=== PATIENT | female | born 1950 | race Caucasian/White ===

== ENCOUNTER 2017-04-08 09:27 | Outpatient (CLI) | payer BC ==
--- NOTE | 2017-04-16 08:39 | DIAGNOSTIC IMAGING REPORT ---
PROCEDURE: MG BILATERAL SCREENING W/CAD INDICATION: SCREENING TECHNIQUE: Bilateral CC and MLO digital views. COMPARISON: Mammograms 04/06/2016, [birth year]27/1958 03/26/2014 . FINDINGS: Computer-aided detection applied. Mildly dense with a few dystrophic calcifications . No change. IMPRESSION: 1. Negative mammogram RESULT CODE: 1- Negative. A. A negative report should not delay biopsy if a dominant or clinically suspicious mass is present. 10-15% of cancers are not identified by x-ray. B. A negative report may reinforce clinical impression. C. Adenosis and dense breasts may obscure an underlying neoplasm. D. False positive reports average 6-10%. E.. A yearly screening mammogram is recommended. A reminder letter will be scheduled.
== END 2017-04-08 23:00 | disposition home or self-care (01) ==
LOC: MAM SRH 09:27
DX: Z12.31 Encounter for screening mammogram for malignant neoplasm of breast (principal)

== ENCOUNTER 2017-04-14 10:03 | Outpatient (CLI) | payer BC ==
--- NOTE | 2017-04-14 10:46 | DIAGNOSTIC IMAGING REPORT ---
PROCEDURE: DEXA BONE DENSITY STUDY CLINICAL INDICATION: OSTEOPOROSIS COMPARISON: DEXA 03/09/2013 FINDINGS: LUMBAR SPINE: Bone mineral density 0.795 g/cm2, T score -2.3 osteopenia which represents a 0.9% decrease from the previous study LEFT HIP: Bone mineral density 0.768 g/cm2, T score -1.4 osteopenia which represents a 7.8% improvement since the previous study. LEFT FEMORAL NECK: Bone mineral density 0.581 g/cm2, T score -2.4 osteopenia which represents a 0.1% decrease from the previous study FRACTURE RISK CALCULATION ( when applicable): 10-year fracture risk of a major osteoporotic fracture 12% and of a hip fracture 2.3% (T score greater or equal to -1.0 to: NORMAL) (T score from -1.1 to -2.4: OSTEOPENIA) (T score ess than or equal to -2.5: OSTEOPOROSIS) IMPRESSION: 1. Osteopenia spine hip and femoral neck with a 10-year major fracture risk of 12% and a hip fracture risk of 2.3%
== END 2017-04-14 23:00 ==
LOC: XR SRH 10:03
DX: M85.88 Other specified disorders of bone density and structure, other site (principal)